=== PATIENT | male | born 1960 | race Two or more races ===

== ENCOUNTER 2019-01-14 06:21 | Day surgery (SDC) | payer OTHER ==
[~2019-01-14] VITALS: Ht 157.5 cm; Wt 57.8 kg
[2019-01-14 06:57] VITALS: BP 128/68
[2019-01-14 10:57] VITALS: BP 120/67
== END 2019-01-14 10:40 | disposition home or self-care (01) ==
LOC: DS 06:21 → EDBD 06:21 → OR 08:00 → GI 08:00 → OR 08:30 → DS 10:40
PROVIDERS: Internal Medicine Gastroenterology
PROC: 0DJD8ZZ Inspection of Lower Intestinal Tract, Via Natural or Artificial Opening Endoscopic (ICD-10-PCS; principal; 2019-01-14 08:00)
DX: Z12.11 Encounter for screening for malignant neoplasm of colon (principal)
CPT/HCPCS: 45378; J1200; J1610; J2250; J2310; J3010; J3490